=== PATIENT | female | born 1980 | race Caucasian/White ===

== ENCOUNTER 2017-07-01 11:10 | Inpatient (IN) | payer BC ==
[~2017-07-01 11:10] MED LIST: ELECTROLYTE-148 SOLN 1,000 ML IV SCH
[2017-07-01 12:23] VITALS: BMI 33.8
[2017-07-01] MEDS ORDERED: TUBERCULIN PPD 5 TU/0.1ML SYRINGE (IN PATIENT USE ONLY) ID ONE (12:30)
[2017-07-01] MEDS ORDERED: OXYTOCIN 30 UNITS in 0.9% NS 30 UNIT/500 ML INFUS.BAG IVPB ONE (13:50)
[2017-07-01] MEDS ORDERED: ELECTROLYTE-148 SOLN 1,000 ML IV SCH (14:00)
[2017-07-01] MEDS ORDERED: OXYTOCIN 30 UNITS in 0.9% NS 30 UNIT/500 ML INFUS.BAG IVPB SCH (14:00)
--- NOTE | 2017-07-01 14:18 | HP ---
Past Medical History - Primary Care Physician PCP:: Erlin Taylor - Admission Chief Complaint: 36 y/o P1 with at EGA 39wks admitted for labor indx with favorable cervix. History of Present Illness: care complicated by AMA, followed for short cervix, s/p steroids. 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: No: Alzheimer's, CVA, Dementia, Migraine, Multiple Sclerosis, Peripheral Neuropathy, Parkinson's, Seizure, Syncope, TIA, Vertigo, Other Cardiovascular: No: AFIB, Aneurysm, Aortic Insufficiency, Aortic Stenosis, CAD, CHF, Deep Vein Thrombosis, HTN, Hyperlipdemia, TN, Mitral Insufficiency, Mitral Stenosis, Murmur, Pulmonary Hypertension, Other Pulmonary: No: Asthma, Bronchitis, Cancer, COPD, O2 Dependent, Pneumonia, Previously Intubated, Pulmonary Embolus, Pulmonary Fibrosis, Sleep Apnea, Other Gastrointestinal: No: Ascites, Cancer, Constipation, Crohn's Disease, Diverticulitis, Diverticulosis, Esophageal Varices, Gastritis, GERD, GI Bleed, Hemorrhoids, Hiatal Hernia, Inflamatory Bowel Disease, Irritable Bowel Disease, Pancreatitis, Peptic Ulcer Disease, Ulcerative Colitis, Other Hepatobiliary: No: Cirrhosis, Cholelithiasis, Cholecystitis, Choledocholithiasis , Hepatitis A, Hepatitis B, Hepatitis C, Other Renal/: No: Renal Failure, Renal Inusuff, BPH, Cancer, Hematuria, Hemodialysis , Neurogenic Bladder, Renal Calculi, UTI, Other Reproductive: No: Ectopic , Endometriosis, Fibroids, PID, Polycystic Ovary Syndrome, Postmenopausal, Other ...: 2 ...Para: 1 ...Term: 1 ...: 0 ...Spon : 0 ...Induced : 0 ...LMP: 09/26/16 ... Weeks Gestation by Dates: 39.5 ...EDC by Dates: 07/03/17 ...EDC by Sono: 07/08/17 Heme/Onc: No: Anemia, B12 Deficiency, Bleeding Disorder, Cancer, Current Chemotherapy, Current Radiation Therapy, Hemochromatosis, Hypercoaguable State, Myeloproliferative Synd, Sickle Cell Disease, Sickle Cell Trait, Thrombocytopenia, Other Infectious Disease: No: AIDS, C-Diff, Herpes Zoster, HIV, MRSA, STD's, Tuberculosis, VREF, Other Psych: No: Addictions, Anxiety, Bipolar, Depression, Panic, Psychosis, Schizophrenia, Other Musculoskeletal: No: Bursitis, Chronic low back pain, Hemiparesis, Hemiplegia, Osteoarthritis, Paraplegia, Other Rheumatology: No: Fibromyalgia, Gout, Lupus, Rheumatoid Arthritis, Sarcoidosis, Vasculitis, Other ENT: No: Allergic Rhinitis, Sinusitis, Other Endocrine: No: Dillingham's Disease, Mone's Disease, Diabetes Insipidus, Diabetes Mellitus, Hyperparathyroidism, Hyperthyroidism, Hypothyroidism, Osteopenia, SIADH, Other Dermatology: No: Basal Cell, Cellulitis, Eczema, Melanoma, Psoriasis, Squamous Cell, Other - Past Surgical History Past Surgical History: Yes: None Hx Myomectomy: No Hx Transabdominal Cerclage: No Additional Surgical History: Left breast Bx - Smoking History Smoking history: Never smoked Have you smoked in the past 12 months: No - Alcohol/Substance Use Hx Alcohol Use: No History of Substance Use: reports: None - Social History Usual Living Arrangement: Yes: With Spouse, With Child ADL: Independent History of Recent Travel: No Home Medications - Allergies Allergies/Adverse Reactions: Allergies Allergy/AdvReac Type Severity Reaction Status Date / Time No Known Allergies Allergy Verified 06/19/17 22:28 - Home Medications Home Medications: Ambulatory Orders RX: Vitamins (Sjr) - 1 tab PO DAILY 05/04/17 Family Disease History - Family Disease History Family History: Denies Review of Systems - Review of Systems Constitutional: reports: No Symptoms, Other (occasional contractions) Eyes: reports: No Symptoms HENT: reports: No Symptoms Neck: reports: No Symptoms Cardiovascular: reports: No Symptoms Respiratory: reports: No Symptoms Gastrointestinal: reports: No Symptoms Genitourinary: reports: No Symptoms Breasts: reports: No Symptoms Reported Musculoskeletal: reports: No Symptoms Integumentary: reports: No Symptoms Neurological: reports: No Symptoms Endocrine: reports: No Symptoms Hematology/Lymphatic: reports: No Symptoms Psychiatric: reports: No Symptoms Pain Intensity: 1 Physical Exam - Maternity Vital Signs: Vital Signs Temperature 97.7 F 07/01/17 12:08 Pulse Rate 80 07/01/17 13:00 Respiratory Rate 18 07/01/17 13:00 Blood Pressure 125/78 07/01/17 13:00 O2 Sat by Pulse Oximetry (%) Constitutional: Yes: Well Nourished, No Distress, Calm Eyes: Yes: WNL, Conjunctiva Clear HENT: Yes: WNL, Atraumatic, Normocephalic Neck: Yes: WNL, Supple, Trachea Midline Cardiovascular: Yes: WNL, Regular Rate and Rhythm Lungs: Clear to auscultation, Normal air movement - Abdominal Exam/OB Fundal Height: 39 Number of Fetuses: Single Presentation: Vertex Contractions: Yes Regularity: Irregular Intensity: Mild Monitor Mode: External Heart Rate (range): 130 Heart Rate Location: Midline Category: I Accelerations: Uniform Decelerations: None - Vaginal Exam/OB Vaginal Bleediing: No Speculum Exam: No Dilatation (cm): 3 Effacement (%): 90 Amniotic Membrane Status: Intact Presentation: Vertex/Position Station: -3 (Adequate pelvimetry) - Physical Exam Musculoskeletal: Yes: WNL Extremities: Yes: WNL Edema: No Integumentary: Yes: WNL Deep Tendon Reflex Grade: Normal +2 ...Motor Strength: WNL Psychiatric: Yes: WNL, Alert, Oriented Hemorrhage Risk Assessment - Risk Factors Medium Risk Factors: Yes: None High Risk Factors: Yes: None Risk Score: 1 Risk Level: Medium Risk Imaging - Results Ultrasound: Report Reviewed Assessment/Plan 36 y/o P1 with at EGA 39wks admitted for labor indx with favorable cervix. Fetus with Category I tracing. Pt is not in labor, with irregular contractions. The cervix is favorable and the pt lives 90 min away from the hospital with rapid past labor. Plan for labor induction. Adequate gynecoid pelvimetry on exam. We had long discussion re: risks, benefits, and alternatives of labor induction. I explained the options of expectant management awaiting spontaneous labor, induction of labor, and elective section. The risks of uterine tachysystole, distress, uterine rupture, need for emergency C/S, hemorrhage, infection, scarring, etc. were discussed. We also discussed the risks of meconium aspiration, shoulder dystocia , and anesthesia options. The pt requested to proceed with induction. We discussed the alternative methods of induction with Cervidil, Cytotec, Folley ballon, and pitocin. The pt prefers pitocin .
[2017-07-01] MEDS ORDERED: FENTANYL/BUPIVACAINE/NS/PF - PCEA - 50 ML DISP.SYRIN EP ONE (16:04)
[2017-07-01] MEDS ORDERED: FENTANYL/BUPIVACAINE/NS/PF - PCEA - 50 ML DISP.SYRIN EP SCH (16:15)
[2017-07-01] MEDS ORDERED: NALOXONE HCL 0.4 MG/ML VIAL IVPUSH PRN (16:15)
[2017-07-01] MEDS ORDERED: OXYTOCIN 20 UNITS in 0.9% NS 20 UNIT/1,000 ML INFUS.BAG IV ONE (20:16)
[2017-07-01] MEDS ORDERED: LIDOCAINE HCL 1% PRESERVATIVE FREE - 30ML VIAL ONE (20:16)
[2017-07-01] MEDS ORDERED: WITCH HAZEL 50% (TUCKS) 40 PAD/JAR PAD TP PRN (21:18)
[2017-07-01] MEDS ORDERED: BISACODYL 10 MG SUPP.RECT RC PRN (21:18)
[2017-07-01] MEDS ORDERED: METHYLERGONOVINE MALEATE 0.2 MG/1 ML AMP IM PRN (21:18)
[2017-07-01] MEDS ORDERED: BENZOCAINE 28 GM HEMORRHOIDAL OINTMENT TP PRN (21:18)
[2017-07-01] MEDS ORDERED: BENZOCAINE 20% 57 GM BOTTLE TP PRN (21:18)
[2017-07-01] MEDS ORDERED: D5W-LR W/ 20 UNITS OXYTOCIN 1,000 ML IV SCH (21:30)
[2017-07-01] MEDS ORDERED: OXYTOCIN 20 UNITS in 0.9% NS 20 UNIT/1,000 ML INFUS.BAG IV SCH (21:45)
[2017-07-01] MEDS ORDERED: MAG HYDROX/AL HYDROX/SIMETH 30 ML UNIT-DOSE CUP PO ONE (23:45)
[2017-07-02] MEDS: IBUPROFEN 600 MG TABLET (FP) PO PRN ×3 (04:48→21:42)
[2017-07-02] MEDS: ACETAMINOPHEN 325 MG TABLET (FP) PO PRN ×3 (04:52→21:41)
[2017-07-02 08:27] LABS: BASO % 0.2 % (0-2.0); EOS % 0.2 % (0-4.5); HEMOGLOBIN 8.9 GM/dL (10.7-15.3); LYMPH % 14.7 % (8-40); MCH 25.5 pg (25.7-33.7); MCHC 31.6 g/dl (32.0-36.0); MEAN CELL VOLUME 80.6 fl (80-96); MEAN PLT VOLUME 8.5 fl (7.5-11.1); NEUT % 77.9 % (42.8-82.8); PLATELET COUNT 214 K/MM3 (134-434); RBC 3.48 M/mm3 (3.60-5.2); RDW 17.6 % (11.6-15.6); WHITE BLOOD COUNT 14.8 K/mm3 (4.0-10.0)
[2017-07-02] MEDS: PRENATAL VITAMINS W/ FOLIC ACID TABLET (FP) PO SCH (09:23)
[2017-07-02] MEDS ORDERED: FLU VACC QS2017-18 36MOS UP/PF 60 MCG/0.5 ML SYRINGE IM ONE (12:00)
--- NOTE | 2017-07-02 14:14 | PN ---
Post Progress Note - Subjective Subjective: She is voiding ambulating, tolerating regular diet Type of Delivery: Vital Signs: Vital Signs Temperature 97.8 F 07/02/17 09:03 Pulse Rate 95 H 07/02/17 09:03 Respiratory Rate 22 07/02/17 09:03 Blood Pressure 121/75 07/02/17 09:03 O2 Sat by Pulse Oximetry (%) 100 07/01/17 22:15 Breast Exam: Yes: Soft Uterus: Yes: Fundus Firm Lochia: Yes: Rubra Lochia, amount: Small Extremities: Yes: Calves non-tender Activity: Ambulating - Labs Labs: CBC WBC 14.8 K/mm3 (4.0-10.0) H 07/02/17 07:20 RBC 3.48 M/mm3 (3.60-5.2) L 07/02/17 07:20 Hgb 8.9 GM/dL (10.7-15.3) L D 07/02/17 07:20 Hct 28.0 % (32.4-45.2) L 07/02/17 07:20 MCV 80.6 fl (80-96) 07/02/17 07:20 MCH 25.5 pg (25.7-33.7) L 07/02/17 07:20 MCHC 31.6 g/dl (32.0-36.0) L 07/02/17 07:20 RDW 17.6 % (11.6-15.6) H 07/02/17 07:20 Plt Count 214 K/MM3 (134-434) 07/02/17 07:20 MPV 8.5 fl (7.5-11.1) 07/02/17 07:20 Neutrophils % 77.9 % (42.8-82.8) 07/02/17 07:20 Lymphocytes % 14.7 % (8-40) 07/02/17 07:20 Monocytes % 7.0 % (3.8-10.2) 07/02/17 07:20 Eosinophils % 0.2 % (0-4.5) 07/02/17 07:20 Basophils % 0.2 % (0-2.0) 07/02/17 07:20 Assessment/Plan 36 yo P2 s/p doing well VSS, Afibrile slight anemia can be controlled with diet Baby boy for circumcision was called later by the nurse and saw patient again She reports feeling very anxious and unable to relax Benadryl reyes and start on Zoloft will monitor in 1 wk in the office
[2017-07-02] MEDS: RANITIDINE HCL 150 MG TABLET (FP) PO SCH (17:47)
[2017-07-02] MEDS ORDERED: diphenhydrAMINE HCL 25 MG CAPSULE (FP) PO ONE ×2 (18:30→21:15)
[2017-07-02] MEDS ORDERED: SERTRALINE HCL 50 MG TABLET (FP) PO ONE (20:42)
--- NOTE | 2017-07-02 21:02 | DS ---
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 Vital Signs: Vital Signs Temperature 97.9 F 07/02/17 17:00 Pulse Rate 80 07/02/17 17:00 Respiratory Rate 20 07/02/17 17:00 Blood Pressure 121/70 07/02/17 17:00 O2 Sat by Pulse Oximetry (%) 100 07/01/17 22:15 Constitutional: Yes: Well Nourished HENT: Yes: WNL, Atraumatic, Normocephalic Neck: Yes: WNL, Supple, Trachea Midline Cardiovascular: Yes: WNL, Regular Rate and Rhythm Respiratory: Yes: WNL, Regular, CTA Bilaterally Gastrointestinal: Yes: WNL, Normal Bowel Sounds, Soft Pelvis: Yes: WNL External Genitalia: Yes: Normal ....Post : Yes: Uterus firm, Uterus non-tender Breast(s): Yes: WNL Musculoskeletal: Yes: WNL Extremities: Yes: WNL Edema: No Integumentary: Yes: WNL Neurological: Yes: WNL, Alert, Oriented ...Motor Strength: WNL Psychiatric: Yes: WNL, Alert, Oriented Labs: CBC, BMP 07/02/17 07:20 Delivery - Delivery Type of Anesthesia: Epidural Episiotomy/Laceration: Perineal Extension/lac, 2nd degree EBL (cc): 300 Delivery, Single - Stages of Labor Date 1st Stage Initiatied: 07/01/17 Time 1st Stage Initiated: 16:00 Date 2nd Stage Initiated: 07/01/17 Time 2nd Stage Initiated: 20:11 Date of Delivery: 07/01/17 Time of Delivery: 20:45 Time Placenta Delivered: 20:55 - Condition of Infant Appellate [employer]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 Present: No Gender: Male Weight: 7 lb 8 oz Position: Left, OA Total Hours ROM (Hrs/Mins): 3hrs 4min - 1 Minute Total Score: 9 5 Minutes Total Score: 9 - [place] Feeding Plan Initial Plan: Elected not to breastfeed exclusively throughout hospitalization Discharge Summary Reason For Visit: INDUCTION OF LABOR Term delivery Anemia depression Procedures: Principal: Normal Spontaneous Vaginal delivery Other Procedures: Ferriday penile cicumcision Hospital Course: Uneventful Condition: Good - Instructions Diet, Activity, Other Instructions: Physical activity Resume your normal everyday activity as tolerated no heavy lifting or exercise until seen by your surgeon. You may walk unlimited keshav of and climb stairs. You may resume driving the car when you feel safe and comfortable behind the wheel. No sexual activity as instructed. Wound care If you have a bandage, leave it on, and keep dry for 48-72 hours. After that time discard the outer bandage. If they are tapes on the skin under the out of bandage leave them in place. They will peel off in the next 7 to 10 days. Do Not Peel them off. You may shower the day after surgery. If there are tapes present on the skin, you may shower over them. Diet There are no dietary restrictions. Eat healthy, high-fiber foods. Drink 6 to 8 glasses of liquid each day. This will assist in keeping your bowels are regular. Pain management You may take Tylenol or acetaminophen or Ibuprofen (for example, Motrin, Advil etc.) from my pain prescription medication is ordered should be taken as prescribed for moderate to severe pain. Call MD for any of the following: Severe pain not relieved by medication Fever of 101 or higher Excessive bleeding or drainage on dressing Inability to urinate Referrals: Erlin Taylor MD [Staff Physician] - Disposition: HOME - Home Medications Comprehensive Discharge Medication List: Ambulatory Orders Vitamins (Sjr) - 1 tab PO DAILY 05/04/17 Sertraline HCl [Zoloft -] 50 mg PO DAILY #30 tablet 07/02/17
[2017-07-02] MEDS ORDERED: SENNOSIDES/DOCUSATE COMBO (SENNA PLUS) TABLET (UD) PO PRN (22:00)
[2017-07-03] MEDS: PRENATAL VITAMINS W/ FOLIC ACID TABLET (FP) PO SCH (10:00)
[2017-07-03] MEDS ORDERED: RANITIDINE HCL 150 MG TABLET (FP) PO SCH (10:00)
[2017-07-03] MEDS: RANITIDINE HCL 150 MG TABLET (FP) PO SCH (10:00)
[2017-07-03 11:20] VITALS: BP 139/64; PULSE 93; TEMP 98.4
== END 2017-07-03 13:00 | disposition home or self-care (01) | DRG 775 ==
LOC: JLDR 11:10 → J3W 23:00
PROVIDERS: ADMIT Obstetrics & Gynecology; ATTEND Obstetrics & Gynecology
PROC: 10E0XZZ Delivery of Products of Conception, External Approach (ICD-10-PCS; principal; 2017-07-01)
PROC: 0KQM0ZZ Repair Perineum Muscle, Open Approach (ICD-10-PCS; 2017-07-01)
DX: O99.02 Anemia complicating childbirth (principal); D64.9 Anemia, unspecified; O70.1 Second degree perineal laceration during delivery; Z3A.39 39 weeks gestation of pregnancy; Z37.0 Single live birth; F53 Mental and behavioral disorders associated with the puerperium, not elsewhere classified
CPT/HCPCS: 36415; 59409; 85025; 86850; 86900; 86901; 90686; G0008